=== PATIENT | male | born 1985 ===

== ENCOUNTER 2017-02-19 12:29 | Observation (INO) | payer OTHER ==
[2017-02-19 12:30] VITALS: BMI 25.7
[2017-02-19 12:50] VITALS: TEMP 98.9
--- NOTE | 2017-02-19 13:09 | ED PDOC ---
Arrival/HPI - General Chief Complaint: Substance Abuse Time Seen by Provider: 02/19/17 12:52 Historian: Patient - History of Present Illness Narrative History of Present Illness (Text): 02/19/17 13:12 A 31 year old male, with a history of substance and PCP abuse, brought in by EMS to the emergency department for suspected intoxication. Patient is minimally responsive bedside. at times agited. noted multiple visits for similar. limited history. 02/19/17 19:26 Symptom Onset: Sudden Symptom Course: Unchanged Activities at Onset: Rest Context: Home Past Medical History - Provider Review Nursing Documentation Reviewed: Yes - Infectious Disease Hx of Infectious Diseases: None - Past Medical History Past Medical History: No Previous - Cardiac Hx Cardiac Disorders: No Hx Hypertension: No - Pulmonary Hx Tuberculosis: No - Neurological HX Cerebrovascular Accident: No Hx Seizures: No - HEENT Hx HEENT Disorder: No - Renal Hx Renal Disorder: No - Endocrine/Metabolic Hx Endocrine Disorders: No - Hematological/Oncological Hx Cancer: No - Integumentary Hx Dermatological Disorder: No - Musculoskeletal/Rheumatological Hx Musculoskeletal Disorders: No - Gastrointestinal Hx Gastrointestinal Disorders: No - Genitourinary/Gynecological Hx Sexually Transmitted Diseases: No - Psychiatric Hx Depression: No Hx Emotional Abuse: No Hx Physical Abuse: No Hx Substance Use: Yes - Past Surgical History Past Surgical History: No Previous - Anesthesia Hx Anesthesia: No Hx Anesthesia Reactions: No Hx Malignant Hyperthermia: No - Suicidal Assessment Feels Threatened In Home Enviroment: No Family/Social History - Physician Review Nursing Documentation Reviewed: Yes Family/Social History: No Known Family HX Smoking Status: Light Smoker < 10 Cigarettes Daily Hx Alcohol Use: Yes (every other day) Hx Substance Use: Yes Substance used: pcp Allergies/Home Meds Allergies/Adverse Reactions: Allergies No Known Allergies Allergy (Verified 02/19/17 12:38) Review of Systems - Review of Systems Systems not reviewed;Unavailable: Other (unresponsive; suspected intoxication) Physical Exam Vital Signs Reviewed: Yes Vital Signs Temp Pulse Resp BP Pulse Ox 02/19/17 15:14 76 16 110/56 L 98 02/19/17 12:48 98.9 F 91 H 20 136/73 99 02/19/17 12:34 127 H 16 136/73 97 Blood Pressure: Normal Pulse: Tachycardic Respiratory Rate: Normal Appearance: Positive for: Well-Appearing, Non-Toxic, Comfortable Pain Distress: None Mental Status: Positive for: Alert and Oriented X 3 - Systems Exam Head: Present: Atraumatic, Normocephalic Pupils: Present: Other (2-3 mm) Extroacular Muscles: Present: EOMI Conjunctiva: Present: Normal Mouth: Present: Moist Mucous Membranes Neck: Present: Normal Range of Motion Respiratory/Chest: Present: Clear to Auscultation, Good Air Exchange. No: Respiratory Distress, Accessory Muscle Use Cardiovascular: Present: Regular Rate and Rhythm, Normal S1, S2. No: Murmurs Abdomen: Present: Normal Bowel Sounds. No: Tenderness, Distention, Peritoneal Signs Back: Present: Normal Inspection Upper Extremity: Present: Normal Inspection. No: Cyanosis, Edema Lower Extremity: Present: Normal Inspection. No: Edema Neurological: Present: GCS=15, CN II-XII Intact, Speech Normal Skin: Present: Warm, Dry, Normal Color. No: Rashes Psychiatric: Present: Alert, Oriented x 3, Normal Insight, Normal Concentration Medical Decision Making ED Course and Treatment: 02/19/17 13:04 Impression: A 31 year old male with suspected intoxication. Plan: -- EKG -- chest xray -- labs -- Urinalysis -- Reassess and disposition Prior Visits: Notes and results from previous visits were reviewed. Patient last reported to the emergency department on 08/14/16 for evaluation of lower inner lip laceration. 02/19/17 19:26 pt awake alert oriented x 3 ambulatory not agited. nicholas art. requesting ot be d/c. stable for d/c - Lab Interpretations Lab Results: 02/19/17 13:10 02/19/17 13:10 Lab Results 02/19/17 13:10: Alcohol, Quantitative 35 H 02/19/17 13:10: Salicylates < 1 L, Acetaminophen < 10.0 L 02/19/17 13:10: Sodium 139, Potassium 3.7, Chloride 104, Carbon Dioxide 25, Anion Gap 14, BUN 12, Creatinine 0.8, Est GFR ( Amer) > 60, Est GFR (Non- Af Amer) > 60, Random Glucose 92, Calcium 9.3, Total Bilirubin 0.5, AST 23, ALT 29, Alkaline Phosphatase 70, Total Protein 7.0, Albumin 4.4, Globulin 2.5, Albumin/Globulin Ratio 1.7 02/19/17 13:10: WBC 5.9 D, RBC 4.77, Hgb 14.7, Hct 42.6, MCV 89.3, MCH 30.8, MCHC 34.5, RDW 13.4, Plt Count 201, MPV 9.9, Gran % 60.8, Lymph % (Auto) 30.5, [place] % (Auto) 6.8 H, Eos % (Auto) 1.7, Baso % (Auto) 0.2, Gran # 3.59, Lymph # 1.8, [place] # 0.4, Eos # 0.1, Baso # 0.01 02/19/17 12:40: Urine Opiates Screen Negative, Urine Methadone Screen Negative, Ur Barbiturates Screen Negative, Ur Phencyclidine Scrn Positive H, Ur Amphetamines Screen Negative, U Benzodiazepines Scrn Negative, U Oth Cocaine Metabols Negative, U Cannabinoids Screen Negative 02/19/17 12:40: Urine Color Yellow, Urine Appearance Clear, Urine pH 6.5, Ur Specific [place] 1.010, Urine Protein Negative, Urine Glucose (UA) Negative, Urine Ketones Negative, Urine Blood Negative, Urine Nitrate Negative, Urine Bilirubin Negative, Urine Urobilinogen 0.2, Ur Leukocyte Esterase Negative I have reviewed the lab results: Yes - RAD Interpretation Radiology Orders: 02/19/17 12:57 CHEST PORTABLE [RAD] Stat - EKG Interpretation Interpreted by ED Physician: Yes Type: 12 lead EKG ED OBSERVATION Date of observation admission: 02/19/17 Time of observation admission: 13:50 - Observation admission statement Patient is being placed in observation because:: substance abuse, intoxication - Goals of Observation Goals of observation are:: pending sobriety - Progress Note Progress Note: Patient has a history of multiple substance abuse, patient is agitated at times. Brought in by EMS for possible PCP use and intoxication. Patient is unresponsive at bedside, not answering questions or following orders, limited ROS. EKG: Ordered, reviewed, and independently interpreted the EKG. Rate : 82 BPM Rhythm : NSR Interpretation : No ST/T or wave changes Comparison : No previous EKG for comparison. chest xray: Creator : Teo Monge MD 02/19/2017 15:09 IMPRESSION: No active disease. 02/19/17 15:20 Patient is awake, alert and oriented X3, calm and cooperative. Patient is ambulatory with steady gait. Patient wants to be discharged. Denies any suicidal ideation and homicidal ideation. On re-evaluation, patient feels better and is in no acute distress. I have discussed the results and plan with the patient, who expresses understanding. Patient in agreement with plan to be discharged home. Patient is stable for discharge. Patient was instructed to follow up with physician or return if symptoms worsen or new concerning symptoms arise. - Scribe Statement The provider has reviewed the documentation as recorded by the Danika Fontana Provider Scribe Attestation: All medical record entries made by the Danika were at my direction and personally dictated by me. I have reviewed the chart and agree that the record accurately reflects my personal performance of the history, physical exam, medical decision making, and the department course for this patient. I have also personally directed, reviewed, and agree with the discharge instructions and disposition. Disposition/Present on Arrival - Present on Arrival Any Indicators Present on Arrival: No History of DVT/PE: No History of Uncontrolled Diabetes: No Urinary Catheter: No History of Decub. Ulcer: No History Surgical Site Infection Following: None - Disposition Have Diagnosis and Disposition been Completed?: Yes Diagnosis: Substance abuse Disposition: HOME/ ROUTINE Disposition Time: 03:30 Condition: STABLE
[2017-02-19 13:26] LABS: ADD MANUAL DIFF? NO
[2017-02-19 13:29] LABS: BASO # 0.01 K/mm3 (0.0-2.0); BASO % 0.2 % (0.0-3.0); EOS # 0.1 (0.0-0.7); EOS % 1.7 % (1.5-5.0); GRAN # 3.59 (1.4-6.5); GRAN % 60.8 % (50.0-68.0); HEMATOCRIT 42.6 % (42.0-52.0); LYMPH # 1.8 (1.2-3.4); LYMPH % 30.5 % (22.0-35.0); MEAN CELL VOLUME 89.3 fL (80.0-105.0); MEAN CORPUSCULAR HEMOGLOBIN 30.8 pg (25.0-35.0); MEAN CORPUSCULAR HGB CONC 34.5 g/dl (31.0-37.0); MEAN PLATELET VOLUME 9.9 fl (7.0-11.0); MONO # 0.4 (0.1-0.6); MONO % 6.8 % (1.0-6.0); PLATELET COUNT 201 10^3/uL (120.0-450.0); RED CELL DISTRIBUTION WIDTH 13.4 % (11.5-14.5); WHITE BLOOD COUNT 5.9 10^3/ul (4.5-11.0)
[2017-02-19 13:42] LABS: ALB/GLOB RATIO 1.7 (1.1-1.8); ALKALINE PHOSPHATASE 70 U/L (38-133); ALT/SGPT 29 U/L (7-56); AST/SGOT 23 U/L (15-59); BILIRUBIN,TOTAL 0.5 mg/dL (0.2-1.3); BLOOD UREA NITROGEN 12 mg/dL (7-21); CALCIUM 9.3 mg/dL (8.4-10.5); CARBON DIOXIDE 25 mmol/L (21-33); CHLORIDE 104 mmol/L (95-110); GFR AFRICAN-AMERICAN > 60; GLUCOSE,RANDOM 92 mg/dL (70-110); POTASSIUM 3.7 mmol/L (3.6-5.0); SODIUM 139 mmol/L (132-148)
[2017-02-19 13:59] LABS: PH,URINE 6.5 (4.7-8.0); URINE BILIRUBIN NEGATIVE (NEGATIVE); URINE BLOOD NEGATIVE (NEGATIVE); URINE GLUCOSE (UA) NEGATIVE (NEGATIVE); URINE KETONE NEGATIVE (NEGATIVE); URINE LEUKOCYTE ESTERASE NEGATIVE Leu/uL (NEGATIVE); URINE PROTEIN NEGATIVE mg/dL (<30 mg/dL); URINE UROBILINOGEN 0.2 E.U./dL (<1 E.U./dL)
[2017-02-19 14:01] LABS: URINE APPEARANCE CLEAR (CLEAR); URINE COLOR YELLOW (YELLOW)
--- NOTE | 2017-02-19 15:07 | RAD ---
HISTORY: pes COMPARISON: 08/03/2016 FINDINGS: LUNGS: No active pulmonary disease. PLEURA: No significant pleural effusion identified, no pneumothorax apparent. CARDIOVASCULAR: Normal. OSSEOUS STRUCTURES: No significant abnormalities. VISUALIZED UPPER ABDOMEN: Normal. OTHER FINDINGS: None. IMPRESSION: No active disease.
[2017-02-19 15:18] VITALS: BP 110/56; PULSE 76; RESP 16; O2SAT 98
--- NOTE | 2017-02-19 15:54 | CARD ---
APPROVED REPORT EKG Measurement Heart [id number] <Conclusion> Normal sinus rhythm LVH by voltage, may be a normal variant J-point elevations c/w early repolarization
== END 2017-02-19 15:08 | disposition home or self-care (01) ==
LOC: ED 12:29 → EROBSV 13:50
PROVIDERS: ADMIT Student in an Organized Health Care Education/Training Program; ATTEND Student in an Organized Health Care Education/Training Program
DX: F19.10 Other psychoactive substance abuse, uncomplicated (principal)
CPT/HCPCS: 71010; 80053; 80320; 80324; 80329; 80345; 80346; 80349; 80353; 80358; 80361; 81003; 83992; 85025; 93005; 99283; G0378

== ENCOUNTER 2017-03-03 02:44 | Emergency (ER) | payer OTHER ==
[2017-03-03 02:44] VITALS: BMI 25.7
== END 2017-03-03 03:03 | disposition left against medical advice (07) ==
LOC: ED 02:44
DX: Z02.89 Encounter for other administrative examinations (principal); R42 Dizziness and giddiness

== ENCOUNTER 2017-06-20 10:51 | Emergency (ER) | payer OTHER ==
[2017-06-20 11:13] VITALS: BMI 24.4
[2017-06-20] MEDS ORDERED: Fluorescein 1 mg Ophthalmic Strip OU ONE (11:30)
--- NOTE | 2017-06-20 11:30 | ED PDOC ---
Arrival/HPI <Eddie Vega - Last Filed: 06/20/17 12:03> <Rolo Schuler - Last Filed: 06/20/17 12:27> - General Chief Complaint: Eye Problem Time Seen by Provider: 06/20/17 11:13 - History of Present Illness Narrative History of Present Illness (Text): 31 year old male with a history of substance abuse who presents with bilateral eye irritation after wearing his disposable contact lenses for 4 days and 4 nights. He woke up today after a night out and when he took off his contacts off his eyes felt funny. He applied some Visine eye drops that were unrelieving. He denies any photophobia, pain with eye movement, or any visual loss/disturbances. He does have a regular video recorder mechanic for follow up in [place]. 06/20/17 11:32 (Eddie Vega) Past Medical History - Provider Review Nursing Documentation Reviewed: Yes - Infectious Disease Hx of Infectious Diseases: None - Past Medical History Past Medical History: No Previous - Cardiac Hx Cardiac Disorders: No Hx Hypertension: No - Pulmonary Hx Tuberculosis: No - Neurological HX Cerebrovascular Accident: No Hx Seizures: No - HEENT Hx HEENT Disorder: No - Renal Hx Renal Disorder: No - Endocrine/Metabolic Hx Endocrine Disorders: No - Hematological/Oncological Hx Cancer: No - Integumentary Hx Dermatological Disorder: No - Musculoskeletal/Rheumatological Hx Musculoskeletal Disorders: No - Gastrointestinal Hx Gastrointestinal Disorders: No - Genitourinary/Gynecological Hx Sexually Transmitted Diseases: No - Psychiatric Hx Depression: No Hx Emotional Abuse: No Hx Physical Abuse: No Hx Substance Use: Yes - Past Surgical History Past Surgical History: No Previous - Anesthesia Hx Anesthesia: No Hx Anesthesia Reactions: No Hx Malignant Hyperthermia: No - Suicidal Assessment Feels Threatened In Home Enviroment: No <Eddie Vega - Last Filed: 06/20/17 12:03> Family/Social History - Physician Review Nursing Documentation Reviewed: Yes Family/Social History: Unknown Family HX Smoking Status: Light Smoker < 10 Cigarettes Daily Hx Alcohol Use: Yes (every other day) Frequency of alcohol use: Socially Hx Substance Use: Yes Substance used: pcp <Eddie Vega - Last Filed: 06/20/17 12:03> Allergies/Home Meds <Eddie Vega - Last Filed: 06/20/17 12:03> <Rolo Schuler - Last Filed: 06/20/17 12:27> Allergies/Adverse Reactions: Allergies No Known Allergies Allergy (Verified 02/19/17 12:38) Review of Systems - Review of Systems Eyes: Eye Pain. absent: Photophobia Respiratory: absent: SOB, Cough Cardiovascular: absent: Chest Pain, Palpitations Gastrointestinal: absent: Abdominal Pain, Hematochezia Genitourinary Male: absent: Dysuria, Frequency Musculoskeletal: absent: Back Pain, Neck Pain Skin: absent: Rash, Pruritis Neurological: absent: Headache, Dizziness, Focal Weakness Endocrine: absent: Diaphoresis, Polyuria, Polydipsia Hemo/Lymphatic: absent: Easy Bleeding, Easy Bruising Psychiatric: absent: Anxiety, Depression <Eddie Vega - Last Filed: 06/20/17 12:03> Physical Exam Temperature: Afebrile Blood Pressure: Normal Pulse: Regular Respiratory Rate: Normal Appearance: Positive for: Well-Appearing, Non-Toxic Pain Distress: Mild Mental Status: Positive for: Alert and Oriented X 3 - Systems Exam Head: Present: Atraumatic, Normocephalic Pupils: Present: PERRL Extroacular Muscles: Present: EOMI Conjunctiva: Present: Injected, Other (fluorescein eye drops applied: corneal abrasions noted, no corneal ulcers noted) Mouth: Present: Moist Mucous Membranes Neck: Present: Normal Range of Motion Respiratory/Chest: Present: Clear to Auscultation, Good Air Exchange. No: Wheezes Cardiovascular: Present: Regular Rate and Rhythm, Normal S1, S2 Upper Extremity: Present: Normal Inspection. No: Cyanosis, Edema Lower Extremity: Present: Normal Inspection. No: Edema, Cyanosis Neurological: Present: CN II-XII Intact, Speech Normal Skin: Present: Warm, Dry, Normal Color Psychiatric: Present: Alert, Oriented x 3, Normal Insight, Normal Concentration <Eddie Vega - Last Filed: 06/20/17 12:03> Vital Signs Temp Pulse Resp BP Pulse Ox 06/20/17 12:11 98.2 F 82 17 122/62 98 06/20/17 11:04 98.6 F 74 16 110/66 99 06/20/17 11:03 98.6 F 72 16 112/76 100 Medical Decision Making <Eddie Vega - Last Filed: 06/20/17 12:03> <Rolo Schuler - Last Filed: 06/20/17 12:27> ED Course and Treatment: Tetracaine 0.5% eye drops applied to bottom lids (OU) followed by fluorescein eye drops. Eyes visualized under [place] UV light guidance: corneal abrasions OU noted; no corneal ulcers noted OU. 06/20/17 12:09 (Eddie Vega) 06/20/17 12:25 Seen and examined with the resident. Our history and physical exam reveals a gentleman who had his contact lenses in for approximately 4 days. He took them out just prior to arrival and developed severe burning eye pain bilaterally. He does have glasses to wear. Fluorescein staining shows bilateral corneal abrasions. No ulcer. He is directed to follow-up with his video recorder mechanic. Prescription for diclofenac and gentamicin. (Rolo Schuler) - Medication Orders Current Medication Orders: Discontinued Medications Fluorescein Sodium (Frith-O-Ytixr A.T.) 1 mg OU ONCE ONE Stop: 06/20/17 11:31 Last Admin: 06/20/17 11:36 Dose: 1 mg Disposition/Present on Arrival - Present on Arrival Any Indicators Present on Arrival: No History of DVT/PE: No History of Uncontrolled Diabetes: No Urinary Catheter: No History of Decub. Ulcer: No History Surgical Site Infection Following: None - Disposition Have Diagnosis and Disposition been Completed?: Yes Disposition Time: 12:00 <Eddie Vega - Last Filed: 06/20/17 12:03> - Present on Arrival Any Indicators Present on Arrival: No History of DVT/PE: No History of Uncontrolled Diabetes: No Urinary Catheter: No History of Decub. Ulcer: No - Disposition Have Diagnosis and Disposition been Completed?: Yes <Rolo Schuler - Last Filed: 06/20/17 12:27> - Disposition Diagnosis: Corneal abrasion due to contact lens Disposition: HOME/ ROUTINE Condition: FAIR Discharge Instructions (ExitCare): Corneal Abrasion (ED) Additional Instructions: 1) Follow up with your video recorder mechanic in the next 48-72 hours, or as early as possible. 2) Wear glasses only for vision 3) Please take any medications as directed. Prescriptions: Ciprofloxacin 0.3% [Ciloxan 0.3% Ophth SOLN] 1 drop BOTHEYES Q3H #1 bottle Diclofenac Sodium 150 ml TP Q6H #1 drops Referrals: [facility], [Primary Care Provider] - Follow up with primary Forms: [employer] ([place]i)
[2017-06-20 12:14] VITALS: BP 122/62; PULSE 82; RESP 17; TEMP 98.2; O2SAT 98
== END 2017-06-20 12:14 | disposition home or self-care (01) ==
LOC: ED 10:51
DX: H18.823 Corneal disorder due to contact lens, bilateral (principal)